=== PATIENT | male | born 1965 | race Hispanic/Latino ===

== ENCOUNTER 2024-11-16 04:40 | Emergency (ER) | payer SELFPAY ==
[~2024-11-16] VITALS: Ht 172.7 cm; Wt 74.8 kg
[2024-11-16 04:45] VITALS: TEMP 97.7
[2024-11-16] MEDS ORDERED: LIDOCAINE VISC 2% SOLN 15 ML UDC ONE (04:46)
[2024-11-16 05:14] LABS: BASOPHILS % 0.5 % (0.0-1.0); EOSINOPHILS % 0.2 % (0.0-6.0); LYMPHOCYTES % 16.0 % (18.0-39.1); MONOCYTES % 6.9 % (4.4-11.3); NEUTROPHILS % 76.1 % (38.7-80.0); RED CELL DISTRIBUTION WIDTH 13.0 % (11.7-14.4)
[2024-11-16 05:15] VITALS: PULSE 102; RESP 15
[2024-11-16 05:20] LABS: AMPHETAMINES SCREEN,URINE NEGATIVE (NEGATIVE); CANNABINOIDS SCREEN,URINE NEGATIVE (NEGATIVE); COCAINE SCREEN,URINE POSITIVE (NEGATIVE); METHADONE SCREEN, URINE NEGATIVE (NEGATIVE); OPIATES SCREEN,URINE NEGATIVE (NEGATIVE)
[2024-11-16] MEDS: MAGNESIUM/ALUMINUM/SIMETHICONE 30 ML UDC PO STA (05:23)
[2024-11-16] MEDS: DEXAMETHASONE SOD PHOS 10 MG/1 ML VIAL IM STA (05:23)
[2024-11-16] MEDS: BELLADONNA ALK/PHENOBARBITAL 5 ML UDC PO ONE (05:23)
[2024-11-16] MEDS: LIDOCAINE VISC 2% SOLN 15 ML UDC PO STA (05:23)
[2024-11-16 05:39] LABS: EST GLOMERULAR FILTRATION RATE 107.0 ML/MIN (>=60)
[2024-11-16] MEDS ORDERED: PROTONIX20 MG PO (05:54)
[2024-11-16 06:13] VITALS: BP 132/89; PULSE 90; RESP 12; O2SAT 97
== END 2024-11-16 06:20 | disposition home or self-care (01) ==
LOC: ER 04:43
DX: R06.00 Dyspnea, unspecified (principal); K21.9 Gastro-esophageal reflux disease without esophagitis; F10.129 Alcohol abuse with intoxication, unspecified; F14.10 Cocaine abuse, uncomplicated; I10 Essential (primary) hypertension; R94.31 Abnormal electrocardiogram [ECG] [EKG]
CPT/HCPCS: 36415; 71045; 80053; 80307; 80320; 82550; 83690; 83880; 84484; 85025; 93005; 99284; J1100